=== PATIENT | female | born 1940 | race Caucasian/White ===

== ENCOUNTER → 2021-12-28 13:01 | Outpatient (BNVA) | payer MEDICARE, SELFPAY | PROVIDERS: Visit Provider Nurse Practitioner Family | DX: G43.119 Migraine with aura, intractable, without status migrainosus (principal); S32.000A Wedge compression fracture of unspecified lumbar vertebra, initial encounter for closed fracture; M51.36 Other intervertebral disc degeneration, lumbar region; M43.06 Spondylolysis, lumbar region; E66.01 Morbid (severe) obesity due to excess calories; E11.40 Type 2 diabetes mellitus with diabetic neuropathy, unspecified; M81.0 Age-related osteoporosis without current pathological fracture; Z68.41 Body mass index [BMI] 40.0-44.9, adult | CPT/HCPCS: 99202 ==

== ENCOUNTER 2021-12-31 13:32 | Outpatient (REF) | payer MEDICARE, SELFPAY ==
--- NOTE | ~2021-12-31 | XR_ITS ---
EXAMINATION: XR THORACIC SPINE CLINICAL INFORMATION: History of wedge compression fracture. COMPARISON: None. TECHNIQUE: Frontal and lateral views of the thoracic spine were obtained. FINDINGS: There is bony demineralization. There is a mild thoracolumbar scoliosis. The thoracic disc spaces are well maintained. No acute fracture or spondylolisthesis is seen. There is multi-level [id number] lower thoracic spondylosis, particularly severe at T9-T10 and T10-T11. The posterior elements are intact. The paravertebral soft tissues are unremarkable. Sternotomy wires are noted. XR/XR lumbar spine 2-3V IMPRESSION: 1. No acute fracture or spondylolisthesis is seen. 2. The thoracic disc spaces are well maintained. 3. There is multi-level thoracic spondylosis. 4. There is a mild thoracolumbar dextroscoliosis. EXAMINATION: XR LUMBOSACRAL SPINE CLINICAL INFORMATION: As above. COMPARISON: None. TECHNIQUE: AP and lateral views of the lumbar spine and lateral view of the lumbosacral junction. FINDINGS: There is bony demineralization. There are 11 ribs noted. 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 Utilizing this numbering methodology, there is a marked L1 upper endplate compression fracture. At L5-L6, there is a 5 mm anterolisthesis. The remaining lumbar disc spaces are relatively well maintained. The posterior elements are intact. There is multi-level lumbar spondylosis and facet arthropathy. There are aortoiliac atherosclerotic calcifications. Right upper quadrant surgical clips are seen. IMPRESSION: 1. 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 Please note numbering methodology, as methodologies may differ. 2. There is an age-indeterminate marked L1 upper endplate compression fracture. 3. There is mild to moderate degenerative disc disease at L5-L6. 4. There is multi-level lumbar spondylosis and facet arthropathy.
--- NOTE | ~2021-12-31 | XR_ITS ---
EXAMINATION: XR THORACIC SPINE CLINICAL INFORMATION: History of wedge compression fracture. COMPARISON: None. TECHNIQUE: Frontal and lateral views of the thoracic spine were obtained. FINDINGS: There is bony demineralization. There is a mild thoracolumbar scoliosis. The thoracic disc spaces are well maintained. No acute fracture or spondylolisthesis is seen. There is multi-level kkvydwlg-ki-phcmzi lower thoracic spondylosis, particularly severe at T9-T10 and T10-T11. The posterior elements are intact. The paravertebral soft tissues are unremarkable. Sternotomy wires are noted. XR/XR thoracic spine 3V IMPRESSION: 1. No acute fracture or spondylolisthesis is seen. 2. The thoracic disc spaces are well maintained. 3. There is multi-level thoracic spondylosis. 4. There is a mild thoracolumbar dextroscoliosis. EXAMINATION: XR LUMBOSACRAL SPINE CLINICAL INFORMATION: As above. COMPARISON: None. TECHNIQUE: AP and lateral views of the lumbar spine and lateral view of the lumbosacral junction. FINDINGS: There is bony demineralization. There are 11 ribs noted. 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 Utilizing this numbering methodology, there is a marked L1 upper endplate compression fracture. At L5-L6, there is a 5 mm anterolisthesis. The remaining lumbar disc spaces are relatively well maintained. The posterior elements are intact. There is multi-level lumbar spondylosis and facet arthropathy. There are aortoiliac atherosclerotic calcifications. Right upper quadrant surgical clips are seen. IMPRESSION: 1. 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 Please note numbering methodology, as methodologies may differ. 2. There is an age-indeterminate marked L1 upper endplate compression fracture. 3. There is mild to moderate degenerative disc disease at L5-L6. 4. There is multi-level lumbar spondylosis and facet arthropathy.
== END 2021-12-31 13:33 | disposition home or self-care (01) ==
LOC: HO.XRAY 13:32
PROVIDERS: PCP Internal Medicine; Visit Provider Nurse Practitioner Family
DX: S32.000A Wedge compression fracture of unspecified lumbar vertebra, initial encounter for closed fracture (principal)
CPT/HCPCS: 72072; 72100

== ENCOUNTER 2022-01-07 09:48 | Outpatient (REF) | payer MEDICARE, SELFPAY ==
--- NOTE | ~2022-01-07 | MM_ITS ---
EXAMINATION: BONE DENSITOMETRY CLINICAL INDICATION: Other intervertebral disc degeneration, lumbar region. COMPARISON: None (current study represents initial baseline exam). TECHNIQUE: Using a [employer] DXA System (software version: 13.1) manufactured by [employer], dual-energy x-ray absorptiometry was performed of the lumbar spine and left hip. The images are of good technical quality. Summary results are attached. FINDINGS: AP SPINE L1-L4 (excluding L3): The data of L1-L4 has been changed to exclude the L3 vertebral body because degenerative changes at these levels may cause overestimation of the lumbar spine density. BMD 1.126 g/cm2, Z-score 0.3, T-score -0.4, normal. LEFT FEMUR, NECK: BMD 0.660 g/cm2, Z-score -1.3, T-score -2.7, osteoporosis. LEFT FEMUR, TOTAL: BMD 0.779 g/cm2, Z-score -0.7, T-score -1.8, osteopenia. IDENTIFIED RISK FACTORS: Menopause, osteoporosis, history of fracture (adult), recurrent falls, rheumatoid arthritis. HISTORY OF FRACTURE: Spine. MEDICATIONS: Vitamin D. MM/XR DEXA axial skeleton IMPRESSION: 1. DIAGNOSIS: Osteoporosis based on the lowest T-score value of -2.7 in the femoral neck applying World Health Organization criteria. 2. 10-YEAR FRACTURE RISK PREDICTION, FRAX: According to the guidelines, FRAX calculation should only be performed on patients in the osteopenia bone density category. Therefore, FRAX was not performed on this patient. 3. Treatment Recommendations: NOF guidelines recommend consideration for treatment in postmenopausal women and men age 50 and older presenting with the following: -A hip or vertebral (clinical or morphometric) fracture. -T-score less than or equal to -2.5 at the femoral neck or spine after appropriate evaluation to exclude secondary causes. -Low bone mass at the hip or spine and a 10-year fracture probability by FRAX of greater than or equal to 3% for hip fracture or greater than or equal to 20% for major osteoporotic fracture based on the [place] adapted WHO algorithm. 4. Other Recommendations: All treatment decisions require clinical judgment and consideration of individual patient factors, including patient preferences, comorbidities, previous drug use, risk factors not captured in the FRAX model (e.g. frailty, falls, vitamin D deficiency, increased bone turnover, interval significant decline in bone density) and possible under or overestimation of fracture risk by FRAX. Additional medical evaluation for secondary cause of low bone mineral density may be appropriate. FUTURE SCAN RECOMMENDATION: People with diagnosed cases of osteoporosis or at high risk for fracture should have regular bone mineral density tests. For patients eligible for Medicare, routine testing is allowed once every 2 years. The testing frequency can be increased to one year for patients who have rapidly progressing disease, those who are receiving or discontinuing medical therapy to restore bone mass, or have additional risk factors.
== END 2022-01-07 09:49 | disposition home or self-care (01) ==
LOC: HO.MAMMO 09:48
PROVIDERS: PCP Internal Medicine; Visit Provider Nurse Practitioner Family
DX: Z13.820 Encounter for screening for osteoporosis (principal); Z78.0 Asymptomatic menopausal state; M51.36 Other intervertebral disc degeneration, lumbar region; M43.06 Spondylolysis, lumbar region; S32.000A Wedge compression fracture of unspecified lumbar vertebra, initial encounter for closed fracture
CPT/HCPCS: 77080